=== PATIENT | male | born 1950 | race Caucasian/White ===

== ENCOUNTER 2016-11-16 21:51 | Emergency (ER) | payer OTHER, MEDICARE ==
[~2016-11-16] VITALS: Ht 162.6 cm; Wt 69.9 kg
--- NOTE | 2016-11-16 21:51 | NUR ---
Patient to [facility] for evaluation. Side rails up. Report given to DARYN ROONEY.
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
[2016-11-16 21:59] VITALS: BP_SYST 118
--- NOTE | 2016-11-16 22:02 | NUR ---
DR Gloria at [facility]
--- NOTE | 2016-11-16 22:20 | NUR ---
Patient given written and verbal discharge instructions and verbalizes understanding. ER MD discussed with patient the results and treatment provided. Patient in stable condition. ID arm band removed. Patient educated on pain management and to follow up with PMD. Pain Scale 0/10. Opportunity for questions provided and answered.
[2016-11-16 22:23] VITALS: BP_SYST 118
== END 2016-11-16 22:20 ==
LOC: SED 21:51
DX: Z02.89 Encounter for other administrative examinations (principal); I10 Essential (primary) hypertension; E11.9 Type 2 diabetes mellitus without complications
CPT/HCPCS: 99283

== ENCOUNTER 2018-03-19 19:46 | Emergency (ER) | payer OTHER, MEDICAID ==
[~2018-03-19] VITALS: Ht 162.6 cm; Wt 63.5 kg
--- NOTE | 2018-03-19 19:47 | NUR ---
Patient to ER bed 4 to gown for evaluation. Side rails up.
[2018-03-19 19:52] VITALS: BP_SYST 115
--- NOTE | 2018-03-19 20:00 | NUR ---
Patient brought to ER by [employer] law clerk for medical clearance. Per officer, patient was found on the street and was arrested on existing warrant. Patient states that he fell yesterday stumbling on steps and now C/O head pain 01/29. Superficial abrasion to posterior head, no bleeding. Mild confusion noted. Denies KO, denies CP, denies N/V, Hx of DM. No signs of acute distress.
--- NOTE | 2018-03-19 20:03 | NUR ---
ER MD Jackson at bedside evaluating the patient.
--- NOTE | 2018-03-19 20:20 | NUR ---
# 20 gauge angiocath placed to right ac. Use of asceptic technique. Opsite placed over site. Blood return noted. Blood for lab drawn from site. Flushed with 10 cc of normal saline. No evidence of infiltration noted. Patient tolerated well.
[2018-03-19] MEDS ORDERED: BACITRACIN 1 GM OINT TP ONE (20:30)
[2018-03-19] MEDS ORDERED: INSULIN REGULAR, HUMAN 10 UNITS/0.1 ML INJ IVP ONE ×2 (20:30→22:15)
[2018-03-19] MEDS ORDERED: NACL 0.9% 1,000 ML IV ONE (20:30)
[2018-03-19 20:53] LABS: MEAN CORPUSCULAR HEMOGLOBIN 37 pg (27-31)
[2018-03-19 20:59] LABS: HEMATOCRIT 39.7 % (36-54); HEMOGLOBIN 13.9 g/dL (14.0-18.0); MEAN CORPUSCULAR HGB CONC 35 % (32-36); MEAN CORPUSCULAR VOLUME 105 fL (79.0-98.0); PLATELET COUNT (AUTO) 75 K/uL (130-430); RED BLOOD CELL COUNT(AUTO) 3.78 MIL/uL (4.2-6.2); RED CELL DISTRIBUTION WIDTH 12.8 % (9.0-15.0); WHITE BLOOD COUNT (AUTO) 3.5 K/uL (4.8-10.8)
[2018-03-19 21:04] LABS: ANION GAP 10 (5-15); CALCIUM 8.5 mg/dL (8.4-11.0); CHLORIDE 98 mmol/L (98-107); POTASSIUM 3.9 mmol/L (3.5-5.1); SODIUM SERUM 131 mmol/L (136-145); UREA NITROGEN, BLOOD 11 mg/dL (8-21)
[2018-03-19 21:08] LABS: ALANINE AMINOTRANSFERASE 36 U/L (12-78); ALBUMIN 2.5 g/dL (3.4-4.8); ASPARTATE AMINOTRANSFERASE 36 U/L (10-37); TOTAL BILIRUBIN 3.7 mg/dL (0.0-1.0)
--- NOTE | 2018-03-19 21:10 | NUR ---
Patient off the unit rasheeda pierce for CT scan.
--- NOTE | 2018-03-19 21:15 | NUR ---
Critical LAB value serum blood glucose 413. Reported to RAUL Jackson 03/19/2018 @ 6006
[2018-03-19 21:17] LABS: ATYPICAL LYMPHOCYTES % 0 % (0-0); BAND % (MANUAL) 4 % (0-6); BASOPHILS % (MANUAL) 0 % (0-2); EOSINOPHILS % (MANUAL) 0 % (0-7); LYMPHOCYTES % (MANUAL) 13 % (20-46); MONOCYTES % (MANUAL) 23 % (0-11)
[2018-03-19 21:18] LABS: GFR AFRICAN AMERICAN 109 mL/min (>90); GLUCOSE 413 mg/dL (70-99)
--- NOTE | 2018-03-19 21:25 | NUR ---
Patient back from CT via [facility]
[2018-03-19 21:26] LABS: BILIRUBIN,URINE NEGATIVE (NEGATIVE); BLOOD, URINE TRACE (NEGATIVE); CLARITY/URINE CLEAR (CLEAR); COLOR,URINE YELLOW (YELLOW); GLUCOSE,URINE 3+ (NEGATIVE); KETONES,URINE NEGATIVE (NEGATIVE); LEUKOCYTE ESTERASE ,URINE NEGATIVE (NEGATIVE); NITRITE, URINE NEGATIVE (NEGATIVE); PROTEIN URINE 2+ (NEGATIVE)
[2018-03-19 21:27] LABS: ACETONE, SERUM NEGATIVE (NEGATIVE)
[2018-03-19 21:34] LABS: BACTERIA,URINE FEW /HPF (None Seen); RBC,URINE 0-3 /HPF (0-3); WBC,URINE 0-3 /HPF (0-3)
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
[2018-03-19] MEDS ORDERED: POTASSIUM CHLORIDE 20 MEQ/PKT PACKET PO ONE (22:15)
--- NOTE | 2018-03-19 22:50 | NUR ---
Patient's son at bedside.
[2018-03-19 22:58] VITALS: BP_SYST 133
--- NOTE | 2018-03-19 22:58 | NUR ---
Patient given written and verbal discharge instructions and verbalizes understanding. ER MD Jackson discussed with patient the results and treatment provided. Patient in stable condition. ID arm band removed. IV catheter removed intact and dressing applied, no active bleeding. Patient educated on pain management and to follow up with PMD. Pain Scale 0/10. Opportunity for questions provided and answered.
== END 2018-03-19 22:58 | disposition home or self-care (01) ==
LOC: SED 19:46
DX: S00.01XA Abrasion of scalp, initial encounter (principal); F10.129 Alcohol abuse with intoxication, unspecified; E11.65 Type 2 diabetes mellitus with hyperglycemia; D61.818 Other pancytopenia; R74.0 Nonspecific elevation of levels of transaminase and lactic acid dehydrogenase [LDH]; I10 Essential (primary) hypertension; W10.9XXA Fall (on) (from) unspecified stairs and steps, initial encounter; Y93.89 Activity, other specified; Y92.89 Other specified places as the place of occurrence of the external cause; Y99.8 Other external cause status
CPT/HCPCS: 36415; 70450; 80053; 81000; 82009; 85007; 85027; 96361; 96374; 96375; 99285; J1815; J7030